=== PATIENT | male | born 1970 | race Caucasian/White ===

== ENCOUNTER 2024-08-29 15:52 | Emergency (ER) | payer BC | END 2024-08-29 17:38 | disposition home or self-care (01) | LOC: ERS 15:52 | DX: S73.109A Unspecified sprain of unspecified hip, initial encounter (principal); V80.919A Animal-rider injured in unspecified transport accident, initial encounter; Y93.52 Activity, horseback riding; Z79.899 Other long term (current) drug therapy | CPT/HCPCS: 72170; 76870; 93976 ==